=== PATIENT | male | born 1940 | race Caucasian/White ===

== ENCOUNTER 2025-08-05 08:25 | Inpatient (IN) ==
--- NOTE | 2025-07-30 14:56 | Anesthesiology Consultation ---
Date of Service July 30, 2025 Assessment & Plan (1) Encounter for pre-operative examination: - will request last EKG prior to 07/2025 from PCP for comparison, Marilee Simmosn. - Per track coach on 07/30/25: No known infectious disease contacts, current infectious disease symptoms in past 10 days or COVID positive test result in the past 30 days. Chart Review Chart Review: Patient NOT seen in Pre Admission Testing History Surgery Operation Date: 08/05/25 13:25 Proposed Procedures p TURP (Transurethral Resection Prostate) - Benito Resendiz MD Height/Weight Height: 5 ft 9 in Weight: 66.224 kg Allergies Allergy/AdvReac Type Severity Reaction Status Date / Time No Known Allergies Allergy Verified 07/30/25 14:10 Medications Home Medications Medication Instructions Recorded Confirmed Last Taken acyclovir 400 mg tablet 400 mg PO BID 07/28/25 07/30/25 Unknown allopurinol 100 mg tablet 100 mg PO QAM 07/28/25 07/30/25 Unknown aspirin 81 mg tablet 81 mg PO QAM 07/28/25 07/30/25 Unknown atorvastatin 10 mg tablet (Lipitor) 10 mg PO HS 07/28/25 07/30/25 Unknown bortezomib 3.5 mg injection powder 3.5 mg IV MONTHLY 07/28/25 07/30/25 Unknown for solution (Velcade) daratumumab 20 mg/mL intravenous 20 mg IV UD 07/28/25 07/30/25 Unknown solution (Darzalex) dexamethasone 4 mg tablet 4 mg PO WK 07/28/25 07/30/25 Unknown famotidine 20 mg tablet 20 mg PO QPM 07/28/25 07/30/25 Unknown magnesium oxide 200 mg PO QPM 07/28/25 07/30/25 Unknown ondansetron 8 mg disintegrating 8 mg PO Q8H PRN n/v 07/28/25 07/30/25 Unknown tablet tamsulosin 0.4 mg capsule 0.4 mg PO BID 07/28/25 07/30/25 Unknown CoQ-10 50 mg PO QDL 07/30/25 07/30/25 Unknown Lactobacillus acidophilus 10 10,000 mmu cells PO QDL 07/30/25 07/30/25 Unknown billion cell capsule (Probiotic) cholecalciferol (vitamin D3) 25 25 mcg PO QAM 07/30/25 07/30/25 Unknown mcg (1,000 unit) tablet (Vitamin D3) sulfamethoxazole 800 1 tab PO 3XWK 07/30/25 07/30/25 Unknown mg-trimethoprim 160 mg tablet (Bactrim DS) triamterene 37.5 1 tab PO QAM 07/30/25 07/30/25 Unknown mg-hydrochlorothiazide 25 mg tablet Past Medical History Medical History (Updated 07/30/25 @ 14:54 by Martha Saucedo PA-C) BPH (benign prostatic hyperplasia) Chronic kidney disease follows with Dr. Vee ([facility]) Hx of malignant neoplasm of prostate dx 2021 - monitoring, no surgical intervention Hyperlipidemia Hypertension Indwelling Neri catheter present [facility] (current) use of systemic steroids Multiple myeloma dx 2021 - follows with [facility] for treatments Past Family History Family History Other No family history of adverse response to anesthesia Past Surgical History Surgical History History of blepharoplasty bilateral History of bone marrow biopsy History of cataract surgery bilateral History of colonoscopy Hx of prostate biopsy S/P left inguinal hernia repair S/P right inguinal hernia repair Social History Smoking Status: Never smoker Do You Dip or Chew Tobacco: No Hx Alcohol Use: No Hx Substance Use: No substance use type: does not use Lab Results Anesthesia Preop Results Results Anesthesia Widget: WBC 6.15 K/ul (4.8-10.8) 07/28/25 Hgb 10.7 g/dl (14.0-18.0) L 07/28/25 Hct 34.9 % (42.0-52.0) L 07/28/25 Plt 137 K/uL (130-400) 07/28/25 Na 140 mmol/L (136-145) 07/28/25 K 3.3 mmol/L (3.5-5.1) L 07/28/25 Cl 105 mmol/L (98-107) 07/28/25 CO2 26 mmol/L (21-32) 07/28/25 BUN 22 mg/dl (6-23) 07/28/25 Creat 1.39 mg/dl (0.6-1.4) 07/28/25 Glucose Level 123 mg/dl (70-99(Fasting)) H 07/28/25 Testing Electrocardiogram Date: 07/28/25 Sinus rhythm with PACs, rate 88 bpm Septal infarct, age undetermined Chest X-Ray Date: 07/28/25 No acute findings.
[~2025-08-05 08:25] MED LIST: DEXAMETHASONE SOD INJ 4 MG/ML VIAL ONE; GLYCOPYRROLATE 0.2 MG/ML VIAL ONE; LIDOCAINE 2% 2 ML VIAL/AMP(20MG/ML) INFIL ONE; ONDANSETRON INJ 2 MG/ML 2 ML VIAL ONE; PROPOFOL IV EMULSION 10 MG/ML 20 ML VIAL IV ONE
[2025-08-05] MEDS ORDERED: ATROPINE SULFATE 0.1 MG/ML 10ML SYR IV PRN (09:08)
[2025-08-05] MEDS ORDERED: PROMETHAZINE HCL 6.25 MG in SODIUM CHLORIDE 0.9% 50 ML IV PRN (09:08)
[2025-08-05] MEDS: LR 15ML/HR IV SCH (09:19)
[2025-08-05] MEDS: SODIUM CHLORIDE 0.9% 1,000 ML IV SCH (09:19)
--- NOTE | 2025-08-05 10:32 | History & Physical Bridge Note ---
Date of Service August 05, 2025 History & Physical Bridge Note I have examined the patient, reviewed the History & Physical and in the interval since the performance of the History & Physical I have noted the following changes of clinical significance: no changes noted
[2025-08-05] MEDS: cefTRIAXone SODIUM 1,000 MG MINI-B 50 ML IV SCH (10:45)
[2025-08-05] MEDS ORDERED: PHENYLEPHRINE HCL 10 MG/ML VIAL ONE (11:50)
--- NOTE | 2025-08-05 12:17 | Post Operative Brief Note ---
PG Immediate Post Op with CF Date of Surgery August 05, 2025 Pre & Post Diagnosis Operation Date: 08/05/25 09:55 Pre-Op Diagnosis: Benign Prostatic Hyperplasia with Lower Urinary Tract Post-Op Diagnosis: Benign Prostatic Hyperplasia with Lower Urinary Tract I identified the patient and participated in the time-out.: Yes Procedure Operation Date: 08/05/25 09:55 Actual Procedures p Transurethral Resection of Prostate(Not Applicable) - Benito Resendiz MD Surgeon Benito Resendiz MD Sanitary Aide NA Estimated Blood Loss 50 Findings Consistent with Post-Op Diagnosis obstructing prostate tissue circumferential, UOs close to borders of resection bilaterally Specimens Specimen Description: A: Prostate Chips Drains Neri Catheter (22fr, 3 way )
--- NOTE | 2025-08-05 12:29 | Operative Report ---
PG Post Operative Report Pre & Post Diagnosis Operation Date: 08/05/25 09:55 Pre-Op Diagnosis: Benign Prostatic Hyperplasia with Lower Urinary Tract Post-Op Diagnosis: Benign Prostatic Hyperplasia with Lower Urinary Tract I identified the patient and participated in the time-out.: Yes Procedure Operation Date: 08/05/25 09:55 Actual Procedures p Transurethral Resection of Prostate(Not Applicable) - Benito Resendiz MD Surgeon Benito Resendiz MD Development Lead NA Estimated Blood Loss 50 Findings Consistent with Post-Op Diagnosis Specimens prostate chips Drains [address] catheter with cbi Disposition Accompanied Patient To Recovery: Yes Description of Procedure SURGEON: Dr. Resendiz UPSET OPERATOR: NA PREOPERATIVE DIAGNOSIS: Enlarged Prostate, urinary retention POSTOPERATIVE DIAGNOSIS: same PROCEDURE: Cystourethroscopy, transurethral resection of prostate FINDINGS: 1. bi -lobar prostate enlargement ANESTHESIA: general ESTIMATED BLOOD LOSS: 50 cc TUBES AND DRAINS: [address] catheter SPECIMENS: 1. Prostate chips COMPLICATIONS: none INDICATIONS FOR PROCEDURE: See preoperative diagnosis OPERATIVE DETAIL: The patient was prepped and draped in the usual fashion in the operating room. A well lubricated resectoscope was inserted into the urethral meatus using the visual obturator and advanced into the bladder. Care was taken to keep the lumen in the center of view. The prostatic urethra was identified including the verumontanum. This landmark was used as the distal limit of resection to protect the urinary sphincter. The prostate was enlarged with kissing lobes a high bladder neck and and bi -lobar prostate enlargement. It was noted to visually obstruct passage into the bladder. Upon entering the bladder the visual obturator was exchanged for the resectoscope loop, the bladder was partially filled. Urine wasclear and wasnot sent for cytology. The bladder was then evaluated in a panendoscopic fashion. There wereno mucosal lesions, severe trabeculations, small diverticuli and no stones. The left and right ureteral orifices were identified in the orthotopic positions. We then proceeded to resect the obstructing prostate tissue taking care to avoid advancing towards the ureteral orifices or distal to the verumontanum. It should be noted the limit of rsection approached the UOs but did not damage them. Prostatic chips were evacuated using a charmaine syringe and meticulous hemostasis was achieved. All parts of the cystoscope and all instruments were removed intact from the patient. A [address] catheter was placed with cbi at slow drip. This was then placed on light traction. Urine was light pink The patient tolerated the procedure well. Please note thatI was present and performed all components of the procedure. I attest to the content of the Intraoperative Record and any orders documented therein. Any exceptions are noted below.
[2025-08-05] MEDS ORDERED: ONDANSETRON 8MG OD TAB PO PRN (12:47)
[2025-08-05] MEDS ORDERED: IBUPROFEN 200 MG TAB PO PRN (12:47)
--- NOTE | 2025-08-05 14:28 | Anesthesiology Progress Note ---
Date of Service August 05, 2025 Anesthesia Post Procedure Vital Signs Vital Signs: Temp Pulse Resp BP BP Pulse Ox O2 Del Method 08/05/25 14:15 97 H 17 136/85 96 Room Air 08/05/25 13:45 87 19 135/84 99 Room Air 08/05/25 13:30 83 16 136/85 96 Room Air 08/05/25 13:15 84 17 134/79 99 Room Air 08/05/25 13:00 79 15 141/85 H 97 Room Air 08/05/25 12:45 79 12 148/91 H 95 Room Air 08/05/25 12:37 14 147/87 H 97 Room Air 08/05/25 12:30 36.4 C L 82 16 139/85 97 Room Air 08/05/25 12:20 81 10 L 139/86 100 Room Air 08/05/25 12:10 84 16 120/80 100 Oxymask 08/05/25 12:02 36.4 C L 79 16 117/76 99 Oxymask 08/05/25 08:37 36.6 C 94 H 16 172/93 H 184/93 H 99 Room Air O2 Flow Rate 08/05/25 14:15 08/05/25 13:45 08/05/25 13:30 08/05/25 13:15 08/05/25 13:00 08/05/25 12:45 08/05/25 12:37 08/05/25 12:30 08/05/25 12:20 08/05/25 12:10 4 08/05/25 12:02 4 08/05/25 08:37 Transfer of Care Handoff Completed per policy Notes Mental Status: alert / awake / arousable and participated in evaluation Nausea / Vomiting: adequately controlled Pain: adequately controlled Airway Patency, RR, SpO2: stable & adequate BP & HR: stable & adequate Hydration State: stable & adequate Anesthetic Complications: no major complications apparent and Pt Satisfied with anesthetic care
[2025-08-05] MEDS: TAMSULOSIN HCL 0.4 MG CAP PO SCH (20:48)
[2025-08-05] MEDS: FAMOTIDINE 20 MG TAB PO SCH (20:48)
[2025-08-05] MEDS: MAGNESIUM OXIDE 400 MG TAB PO SCH (20:48)
[2025-08-05] MEDS: ATORVASTATIN 10 MG TAB PO SCH (20:48)
[2025-08-06] MEDS: ACETAMINOPHEN 500 MG TAB PO PRN (00:24)
[2025-08-06 07:29] VITALS: RESP 18; O2SAT 96
--- NOTE | 2025-08-06 08:10 | Urology Progress Note ---
Date of Service August 06, 2025 Assessment & Plan (1) Urinary retention due to benign prostatic hyperplasia: Plan - Pt POD#1 s/p TURP with Dr. Resendiz - Doing well, progressing as expected - Afebrile, lab work reviewed - creatinine 1.62, WBC 6.42, Hgb 9.0 - Tolerating PO diet - 3 way Neri catheter intact, patent and draining clear pink urine with CBI clamped - CBI clamped @745, nursing aware - will reassess later this AM - Neri continues to drain mcintosh red after activity, assessed with patient, will maintain Neri catheter placement upon d/c - Anticipate home with catheter later today presuming urine appropriate and he continues to progress as expected - Expected clinical course reviewed, all questions answered - Will arrange outpatient follow-up with our service for TOV and f/u appt - Due to history of multi myeloma will send antibiotics, upon discharge Admission and Anticipated Discharge Date Admission Date: August 05, 2025 Subjective Resting comfortably in bed CBI with clear urine CBI turned off with clear urine, pink-tinged Denies pain, fevers, nausea, vomiting No other acute urological concerns only issue was minimal sleep overnight Review of Systems Constitutional: as per Subjective / HPI Genitourinary: + as per Subjective / HPI Physical Exam Constitutional: well developed and well nourished; no acute distress Respiratory: normal respiratory effort and able to speak in complete sentences Musculoskeletal: Extremities: extremities normal to inspection Psychiatric: Orientation: alert and oriented x 3 Results & Data Vital Signs (Past 12 Hours) Vital Signs Temp Pulse Resp BP Pulse Ox O2 Del Method 08/06/25 07:29 36.5 C 77 18 146/76 H 96 Room Air 08/05/25 23:38 36.7 C 71 16 134/73 98 Room Air PG Care Time/CCT Total # of Minutes Spent Total Time Spent with Patient: Total time spent is greater than 50% in coordination of care (as documented) at patient's floor/unit and/or counseling patient: Coding Level of Care Code 37473 SUB INP/OBS CARE 3/50MIN Diagnoses Urinary retention due to benign prostatic hyperplasia N40.1; R33.8 Comment greater than 50 mins with pt, coordinating care, documentation
[2025-08-06 08:16] LABS: Anion Gap 9.0 (3-11); Blood Urea Nitrogen 27.0 mg/dl (6-23); Calcium 8.1 mg/dl (8.6-10.3); Carbon Dioxide 23.0 mmol/L (21-32); Chloride 107.0 mmol/L (98-107); Creatinine Clr Calc Pharmacy 32.7 ml/min; Glucose 123.0 mg/dl (70-99(Fasting)); Potassium 3.5 mmol/L (3.5-5.1); Sodium 139.0 mmol/L (136-145)
[2025-08-06 08:20] LABS: Anisocytosis Present; Hematocrit (blood only) 28.1 % (42.0-52.0); Hemoglobin 9.0 g/dl (14.0-18.0); Immature Granulocytes # (auto) 0.06 K/uL (0.01-0.20); Immature Granulocytes % (auto) 0.9 %; Mean Corpuscular Hemoglobin 22.0 pg (25.0-34.0); Mean Corpuscular Volume 68.5 fL (80.0-100.0); Microcytosis Present; Platelet Count 108 K/uL (130-400); Poikilocytosis Present; RDW Standard Deviation 43.4 fL (36.4-46.3); Red Blood Count 4.10 M/uL (4.70-6.10); Tear Drop Cells 2+; White Blood Count 6.42 K/ul (4.8-10.8)
[2025-08-06] MEDS: CHOLECALCIFEROL 25 MCG (1000 UNITS) TAB PO SCH (09:56)
[2025-08-06] MEDS: TRIAMTERENE/HCTZ 37.5/25MG TAB PO SCH (09:57)
--- NOTE | 2025-08-06 10:50 | Discharge Summary ---
<Statement entered by Benito Resendiz MD - 08/06/25 12:18> Chart reviewed patient discussed plan reviewed and agree as written. Date of Service August 06, 2025 Admission HPI Per Admitting Provider 85-year-old male admitted for BPH with urinary retention here for TURP. Principal Diagnosis BPH with urinary retention Discharge Exam Constitutional well developed and well nourished; no acute distress Respiratory normal respiratory effort and able to speak in complete sentences Musculoskeletal Extremities: extremities normal to inspection Psychiatric Orientation: alert and oriented x 3 Discharge Data Allergies Allergy/AdvReac Type Severity Reaction Status Date / Time No Known Allergies Allergy Verified 08/05/25 08:48 Procedures Performed Operation Date: 08/05/25 09:55 Actual Procedures p Transurethral Resection of Prostate(Not Applicable) - Benito Resendiz MD Hospital Course (1) Urinary retention due to benign prostatic hyperplasia: Plan - Pt POD#1 s/p TURP with Dr. Resendiz - Doing well, progressing as expected - Afebrile, lab work reviewed - creatinine 1.62, WBC 6.42, Hgb 9.0 - Tolerating PO diet - 3 way Neri catheter intact, patent and draining clear pink urine with CBI clamped - CBI clamped @745, nursing aware - will reassess later this AM - Neri continues to drain mcintosh red after activity, assessed with patient, will maintain Neri catheter placement upon d/c - Anticipate home with catheter later today presuming urine appropriate and he continues to progress as expected - Expected clinical course reviewed, all questions answered - Will arrange outpatient follow-up with our service for TOV and f/u appt - Due to history of multi myeloma will send antibiotics, upon discharge Total Time Total Time Spent Total Time Spent (In Minutes): 25 Discharge Plan Discharge Items Patient Disposition: Home - Self-Care Reason For Visit: Benign Prostatic Hyperplasia with Lower Urinary Tr Discharge Diagnosis: BPH with LUTS Activity: Per Instructions section Non-emergency contact: Primary Care Provider and Urologist Call non-emergency contact if: your pain is not controlled and your temperature is above 101.5 Follow-up/Referrals: Marilee Villanueva PA-C [Primary Care Provider] - Diet: Regular Addtl Attending Provider Instructions: The surgery you had was TURP (Trans-urethral resection of the prostate) Please take all medications as prescribed and keep all follow-ups as scheduled. Please call our office at [phone] with any questions, concerns or need to reschedule appointments for any reason. We are happy to assist you. Medications: -Please resume your normal medications as previously prescribed. -If your urine is clear yellow you may resume taking asprin tomorrow -Take a stool softener such as colace or Miralax to keep your stool soft. The goal is one soft bowel movement daily. -For pain, it is ok to take tylenol. You can also try pyridium (also known as AZO). This can be gotten [id number]. It turns your urine a bright orange color. -You have been prescribed an antibiotic Bactrim. Please take this twice daily for the next 5 days. You may resume your normal Bactrim schedule after this. Activity: -Avoid straining or bearing down for the next 1-2 weeks. This can cause or increase bleeding. Avoiding straining to have bowel movements. -If you notice blood in your urine, try to remain well-hydrated to keep the urine dilute. -For the next 2 weeks, avoid activities that put pressure on your perineum (area behind the scrotum), such as riding a bike. What to expect after your procedure: -If a catheter was left in place, we will have you come to the office in the next couple days to remove it. -You may notice some blood in your urine. As long as your catheter is draining, this is ok. -You may have increased urinary frequency and urgency; this should improve with time. -You may notice some urinary leaking, especially with coughing/sneezing/bearing down. This should improve with time. When to call [facility] at [phone]: Fever of 101F or higher Heavy bleeding Pain that is not controlled with medicine Uncontrolled vomiting Problems urinating or inability to urinate Our office will call to schedule an appointment for catheter removal. Pending Studies at Discharge: No Stand-Alone Forms: My Apportable, Smoking Cessation Medications and DC Order Prescriptions: Continued tamsulosin 0.4 mg capsule 0.4 mg PO BID bortezomib [Velcade] 3.5 mg recon soln 3.5 mg IV MONTHLY Darzalex 20 mg/mL solution 20 mg IV UD ondansetron 8 mg tablet,disintegrating 8 mg PO Q8H PRN (Reason: n/v) Patient Comments: 07/30/25 has on hand, not currently using allopurinol 100 mg tablet 100 mg PO QAM atorvastatin [Lipitor] 10 mg tablet 10 mg PO HS famotidine 20 mg tablet 20 mg PO QPM dexamethasone 4 mg tablet 4 mg PO WK Patient Comments: takes on magnesium oxide 200 mg magnesium tablet 200 mg PO QPM acyclovir 400 mg tablet 400 mg PO BID CoQ-10 50 mg PO QDL cholecalciferol (vitamin D3) [Vitamin D3] 25 mcg (1,000 unit) Tablet 25 mcg PO QAM Probiotic 10 billion cell Capsule 10,000 mmu cells PO QDL triamterene-hydrochlorothiazid 37.5-25 mg Tablet 1 tab PO QAM sulfamethoxazole-trimethoprim [Bactrim DS] 800-160 mg Tablet 1 tab PO 3XWK Patient Comments: takes Sunday/Sunday/Sunday by his oncologist Held aspirin 81 mg tablet 81 mg PO QAM Hold Instructions: Resume on 08/10/25. hold until TOV Discharge Orders: Discharge Order (Routine); Ordered 08/06/25 Ordered By: Pilar Fine Admission Data Admit Date/Time: 08/05/25 12:25 Attending Provider: Benito Resendiz Admit Provider: Benito Resendiz Primary Care Provider: Marilee Villanueva Coding Level of Care Code 35924 IN/OBS DISCH 30 MIN/LESS Diagnoses Urinary retention due to benign prostatic hyperplasia N40.1; R33.8
[2025-08-06 11:11] VITALS: BP 152/79; PULSE 73; TEMP 97.3
[2025-08-06] MEDS ORDERED: ADVANCED PROBIOTIC 625 MG CAPSULE PO SCH (11:30)
[2025-08-11] MEDS ORDERED: ASPIRIN 81 MG ECTAB PO SCH (09:00)
== END 2025-08-06 14:05 | disposition home or self-care (01) | DRG 713 ==
LOC: ASU 08:25 → PACUINP 12:25 → 3W 15:33